=== PATIENT | male | born 1945 | race Caucasian/White ===

== ENCOUNTER → 2016-08-10 | Outpatient (CLI) | payer SELFPAY ==
--- NOTE | 2016-08-11 10:58 | RAD ---
EXAM DESCRIPTION: Chest,2 Views CLINICAL HISTORY: COPD COMPARISON: None available FINDINGS: The heart is at the upper limits of normal size. Is mild right hilar prominence. There is no airspace consolidation. Mild blunting of the posterior costophrenic angles is noted in the lateral view. The lung volumes are within normal range. There is no pneumothorax or acute fracture. IMPRESSION: Slight right hilar prominence, probably related to normal vascular structures. Chest CT is suggested for confirmation. Alternatively, short-term follow-up chest radiograph is recommended. Blunting of the posterior costophrenic angles, nonspecific. This may represent pleural thickening or scarring, less likely tiny pleural effusions. Otherwise unremarkable exam. Electronically signed by: Kenan Holcomb MD 08/11/2016 10:58 AM CDT Workstation: [id number]
== END | disposition home or self-care (01) ==
LOC: RAD 12:09
PROVIDERS: ATTEND Nurse Practitioner Family
DX: J44.9 Chronic obstructive pulmonary disease, unspecified (principal)